=== PATIENT | male | born 1990 | race Caucasian/White ===

== ENCOUNTER 2021-12-26 13:27 | Emergency (ER) | payer OTHER ==
[~2021-12-26] VITALS: Ht 182.9 cm; Wt 86.9 kg
[2021-12-26] MEDS ORDERED: NOVOLIN R100 UNIT/1 INJ (13:51)
[2021-12-26] MEDS ORDERED: NOVOLIN N100 UNIT/1 SUB-Q (13:51)
== END 2021-12-26 15:30 | disposition home or self-care (01) ==
LOC: ED 13:27
DX: E10.649 Type 1 diabetes mellitus with hypoglycemia without coma (principal); Z79.4 Long term (current) use of insulin
CPT/HCPCS: 80053; 85025; 99284